=== PATIENT | female | born 1970 | race Caucasian/White ===

== ENCOUNTER 2021-09-21 12:21 | Emergency (ER) | payer OTHER ==
[2021-09-21 12:29] VITALS: BP 131/49
[2021-09-21 13:37] LABS: APPEARANCE,URINE CLEAR (CLEAR); BILIRUBIN,URINE NEGATIVE (NEGATIVE); COLOR,URINE YELLOW (YELLOW); GLUCOSE, URINE (UA) NEGATIVE (NEGATIVE); KETONES,URINE NEGATIVE (NEGATIVE); LEUKOCYTE ESTERASE ,URINE NEGATIVE (NEGATIVE); NITRATE,URINE NEGATIVE (NEGATIVE); OCCULT BLOOD,URINE TRACE-INTACT (NEGATIVE); PROTEIN,URINE NEGATIVE (NEGATIVE); UROBILINOGEN,URINE 0.2 mg/dL (0.2-1.0)
[2021-09-21 13:39] LABS: HCG,QUAL RESULT NEGATIVE (NEGATIVE)
[2021-09-21 13:50] LABS: BACTERIA,URINE Rare /HPF (None Seen); RBC,URINE 0-1 /HPF (0-1); SQUAMOUS EPITHELIAL CELL,UR Rare /HPF (0-2); WBC,URINE 0-1 /HPF (0-1)
[2021-09-21] MEDS ORDERED: LORAZEPAM 2 MG/ML 1 ML VIAL IVP ONE (14:00)
[2021-09-21] MEDS ORDERED: LORAZEPAM 2 MG/ML 1 ML VIAL ONE (14:10)
[2021-09-21] MEDS ORDERED: LORA-192 PO (15:45)
== END 2021-09-21 15:57 | disposition home or self-care (01) ==
LOC: EDH 12:21
DX: M54.6 Pain in thoracic spine (principal); M54.2 Cervicalgia; M54.50 Low back pain, unspecified; F32.A Depression, unspecified; Z90.49 Acquired absence of other specified parts of digestive tract
CPT/HCPCS: 72125; 72128; 72131; 81001; 81025; 96374; 99284; J2060

== ENCOUNTER 2022-09-13 13:37 | Emergency (ER) | payer OTHER ==
[~2022-09-13] VITALS: Ht 160 cm; Wt 73.9 kg
[~2022-09-13 13:37] MED LIST: LORA-192 PO
[2022-09-13 14:20] LABS: BASOPHILS % (AUTO) 0.7 % (0.0-5.0); EOSINOPHILS % (AUTO) 1.3 % (0.0-8.0); HEMATOCRIT 44.8 % (36-48); LYMPHOCYTES % (AUTO) 18.4 % (21.0-51.0); MEAN CORPUSCULAR HEMOGLOBIN 31.4 pg (27.0-33.0); MEAN CORPUSCULAR HGB CONC 34.6 g/dL (32.0-36.0); MEAN CORPUSCULAR VOLUME 90.7 fL (79-99); MONOCYTES % (AUTO) 6.3 % (3.0-13.0); NEUTROPHILS % (AUTO) 73.1 % (40.0-77.0); PLATELET COUNT (AUTO) 211 K/uL (130-400); RED BLOOD CELL COUNT(AUTO) 4.94 MIL/uL (4.00-5.50); RED CELL DISTRIBUTION WIDTH 12.5 % (11.0-15.5)
[2022-09-13 14:56] LABS: CREATININE 0.8 mg/dL (0.5-1.5); POTASSIUM 3.7 mmol/L (3.5-5.1)
[2022-09-13 15:01] LABS: ALBUMIN 3.4 g/dL (3.5-5.0); TOTAL PROTEIN, SERUM 6.6 g/dL (6.0-8.3)
[2022-09-13] MEDS ORDERED: DEXAMETHASONE SOD PHOSPHATE 4 MG/ML 1ML VIAL IVP ONE (16:00)
[2022-09-13] MEDS ORDERED: KETOROLAC 15MG/ML VIAL (15MG/ML) IV ONE (16:00)
[2022-09-13 16:29] VITALS: BP 101/55
[2022-09-13] MEDS ORDERED: METH4TAB3 PO (17:22)
== END 2022-09-13 17:37 | disposition home or self-care (01) ==
LOC: EDH 13:37
DX: R09.1 Pleurisy (principal); F32.A Depression, unspecified; F17.200 Nicotine dependence, unspecified, uncomplicated; Z90.49 Acquired absence of other specified parts of digestive tract; Z90.710 Acquired absence of both cervix and uterus
CPT/HCPCS: 99285; 96374; 71045; 96375; 84484; 80053; 85025; 36415; 93005; J1100; J1885

== ENCOUNTER 2023-01-10 10:38 | Emergency (ER) | payer OTHER ==
[~2023-01-10] VITALS: Ht 157.5 cm; Wt 74.8 kg
[~2023-01-10 10:38] MED LIST changes: +METH4TAB3 PO
[2023-01-10 11:19] LABS: BASOPHILS # (AUTO) 0.03 K/uL (0.00-0.20); BASOPHILS % (AUTO) 0.4 % (0.0-5.0); EOSINOPHILS # (AUTO) 0.14 K/uL (0.00-0.70); HEMATOCRIT 45.2 % (36-48); IMMATURE GRANULOCYTE ABSOLUTE 0.01 K/uL (0-1); LYMPHOCYTES # (AUTO) 1.5 K/uL (1.0-4.8); LYMPHOCYTES % (AUTO) 21.8 % (21.0-51.0); MEAN CORPUSCULAR HEMOGLOBIN 31.6 pg (27.0-33.0); MEAN CORPUSCULAR HGB CONC 35.4 g/dL (32.0-36.0); MEAN CORPUSCULAR VOLUME 89.2 fL (79-99); MONOCYTES # (AUTO) 0.5 K/uL (0.1-1.0); MONOCYTES % (AUTO) 6.8 % (3.0-13.0); NEUTROPHILS # (AUTO) 4.8 K/uL (1.8-7.7); NEUTROPHILS % (AUTO) 68.9 % (40.0-77.0); PLATELET COUNT (AUTO) 246 K/uL (130-400); RED BLOOD CELL COUNT(AUTO) 5.07 MIL/uL (4.00-5.50); RED CELL DISTRIBUTION WIDTH 12.6 % (11.0-15.5)
[2023-01-10 11:27] LABS: ALBUMIN 3.8 g/dL (3.5-5.0); BILIRUBIN,TOTAL 0.5 mg/dL (0.2-1.0); CREATININE 0.7 mg/dL (0.5-1.5); POTASSIUM 4.5 mmol/L (3.5-5.1); TOTAL PROTEIN, SERUM 7.5 g/dL (6.0-8.3)
[2023-01-10] MEDS ORDERED: SUCRALFATE 1 GM TABLET PO SCH (13:00)
[2023-01-10] MEDS ORDERED: PANTOPRAZOLE 40 MG/VIAL IVP ONE (13:00)
[2023-01-10] MEDS ORDERED: PANTOPRAZOLE 40 MG/VIAL ONE (13:06)
[2023-01-10] MEDS ORDERED: SUCRALFATE 1 GM TABLET ONE (13:07)
[2023-01-10] MEDS ORDERED: SUCR1TAB28 PO (16:41)
[2023-01-10] MEDS ORDERED: PANT40TA55 PO (16:41)
[2023-01-10 16:42] VITALS: BP 128/65; PULSE 67; RESP 16; O2SAT 98
== END 2023-01-10 16:50 | disposition home or self-care (01) ==
LOC: EDH 10:38
DX: K21.9 Gastro-esophageal reflux disease without esophagitis (principal); K22.4 Dyskinesia of esophagus; F17.200 Nicotine dependence, unspecified, uncomplicated; Z79.52 Long term (current) use of systemic steroids; Z79.899 Other long term (current) drug therapy; Z90.49 Acquired absence of other specified parts of digestive tract
CPT/HCPCS: 99285; 96374; 71045; 84484 ×2; 80053; 83690; 85025; 36415; 93005; C9113

== ENCOUNTER 2024-02-27 12:40 | Emergency (ER) | payer BC ==
[~2024-02-27] VITALS: Ht 157.5 cm; Wt 68.5 kg
[~2024-02-27 12:40] MED LIST changes: +FAMO-136 PO; +ONDA-243 PO; +PANT40TA55 PO; +SUCR1TAB28 PO; +SULF1TAB42 PO
[2024-02-27 13:50] LABS: BASOPHILS # (AUTO) 0.03 K/uL (0.00-0.20); BASOPHILS % (AUTO) 0.4 % (0.0-5.0); EOSINOPHILS # (AUTO) 0.11 K/uL (0.00-0.70); EOSINOPHILS % (AUTO) 1.3 % (0.0-8.0); HEMATOCRIT 44.1 % (36-48); IMMATURE GRANULOCYTE ABSOLUTE 0.02 K/uL (0-1); LYMPHOCYTES # (AUTO) 1.8 K/uL (1.0-4.8); LYMPHOCYTES % (AUTO) 22.1 % (21.0-51.0); MEAN CORPUSCULAR HEMOGLOBIN 31.1 pg (27.0-33.0); MEAN CORPUSCULAR HGB CONC 34.7 g/dL (32.0-36.0); MEAN CORPUSCULAR VOLUME 89.6 fL (79-99); MONOCYTES # (AUTO) 0.5 K/uL (0.1-1.0); MONOCYTES % (AUTO) 5.8 % (3.0-13.0); NEUTROPHILS # (AUTO) 5.7 K/uL (1.8-7.7); NEUTROPHILS % (AUTO) 70.2 % (40.0-77.0); PLATELET COUNT (AUTO) 231 K/uL (130-400); RED BLOOD CELL COUNT(AUTO) 4.92 MIL/uL (4.00-5.50); RED CELL DISTRIBUTION WIDTH 12.5 % (11.0-15.5); WHITE BLOOD COUNT (AUTO) 8.2 K/uL (4.8-10.8)
[2024-02-27 13:58] LABS: CREATININE 0.7 mg/dL (0.5-1.0)
[2024-02-27 14:21] LABS: APPEARANCE,URINE CLOUDY (CLEAR); BILIRUBIN,URINE NEGATIVE (NEGATIVE); COLOR,URINE LIGHT-YELLOW (YELLOW); GLUCOSE, URINE (UA) NEGATIVE (NEGATIVE); KETONES,URINE NEGATIVE (NEGATIVE); LEUKOCYTE ESTERASE ,URINE 500 Leu/uL (NEGATIVE); NITRATE,URINE NEGATIVE (NEGATIVE); OCCULT BLOOD,URINE MODERATE (NEGATIVE); PH,URINE 5.5 (5.0-8.0); PROTEIN,URINE NEGATIVE (NEGATIVE); UROBILINOGEN,URINE 0.2 mg/dL (0.2-1.0)
[2024-02-27 14:25] LABS: ADD UA MICROSCOPIC YES
[2024-02-27 14:28] LABS: BACTERIA,URINE RARE /HPF (None Seen); MUCUS,URINE RARE LPF (None Seen); SQUAMOUS EPITHELIAL CELL,UR FEW /HPF (0-2); WBC,URINE 26-50 /HPF (0-1)
[2024-02-27] MEDS ORDERED: CEPH500B PO (14:39)
[2024-02-27] MEDS: LACTATED RINGERS 1000ML 1,000 ML IV ONE (15:18)
[2024-02-27] MEDS: ketOROlac 30MG VIAL (30MG/ML) IM ONE (15:19)
[2024-02-27 15:46] VITALS: BP 149/84; PULSE 76; RESP 18; TEMP 98.4; O2SAT 100
== END 2024-02-27 16:19 | disposition home or self-care (01) ==
LOC: EDH 12:40
DX: N39.0 Urinary tract infection, site not specified (principal); F17.200 Nicotine dependence, unspecified, uncomplicated; Z79.899 Other long term (current) drug therapy; Z90.49 Acquired absence of other specified parts of digestive tract; Z90.710 Acquired absence of both cervix and uterus
CPT/HCPCS: 99284; 80048; 85025; 87086; 81001; 36415; 96372; J7120; J1885

== ENCOUNTER 2024-11-01 03:20 | Emergency (ER) | payer BC ==
[~2024-11-01] VITALS: Ht 157.5 cm; Wt 72.1 kg
[~2024-11-01 03:20] MED LIST changes: +CEPH500B PO
[2024-11-01 04:08] LABS: BASOPHILS # (AUTO) 0.03 K/uL (0.00-0.20); BASOPHILS % (AUTO) 0.3 % (0.0-5.0); EOSINOPHILS # (AUTO) 0.08 K/uL (0.00-0.70); EOSINOPHILS % (AUTO) 0.7 % (0.0-8.0); HEMATOCRIT 39.8 % (36-48); IMMATURE GRANULOCYTE ABSOLUTE 0.03 K/uL (0-1); LYMPHOCYTES # (AUTO) 1.8 K/uL (1.0-4.8); LYMPHOCYTES % (AUTO) 16.1 % (21.0-51.0); MEAN CORPUSCULAR HEMOGLOBIN 32.6 pg (27.0-33.0); MEAN CORPUSCULAR HGB CONC 36.2 g/dL (32.0-36.0); MONOCYTES # (AUTO) 0.9 K/uL (0.1-1.0); NEUTROPHILS # (AUTO) 8.3 K/uL (1.8-7.7); NEUTROPHILS % (AUTO) 74.6 % (40.0-77.0); PLATELET COUNT (AUTO) 239 K/uL (130-400); RED BLOOD CELL COUNT(AUTO) 4.42 MIL/uL (4.00-5.50); RED CELL DISTRIBUTION WIDTH 12.5 % (11.0-15.5); WHITE BLOOD COUNT (AUTO) 11.2 K/uL (4.8-10.8)
[2024-11-01 04:16] LABS: CREATININE 0.5 mg/dL (0.5-1.0)
[2024-11-01] MEDS: 0.9%NACL 1000ML 1,000 ML IV ONE (04:21)
[2024-11-01] MEDS: Solu-medROL 125MG VIAL IVP ONE (04:21)
[2024-11-01] MEDS: FAMOTIDINE 20MG VIAL IV ONE (04:22)
[2024-11-01] MEDS: acetaMINOPHEN 500 MG TABLET PO ONE (04:22)
[2024-11-01] MEDS: ketOROlac 15MG/ML VIAL (15MG/ML) IV ONE (04:22)
[2024-11-01 04:45] LABS: APPEARANCE,URINE CLEAR (CLEAR); BILIRUBIN,URINE NEGATIVE (NEGATIVE); COLOR,URINE YELLOW (YELLOW); GLUCOSE, URINE (UA) NEGATIVE (NEGATIVE); KETONES,URINE NEGATIVE (NEGATIVE); LEUKOCYTE ESTERASE ,URINE NEGATIVE Leu/uL (NEGATIVE); NITRATE,URINE NEGATIVE (NEGATIVE); OCCULT BLOOD,URINE LARGE (NEGATIVE); PH,URINE 5.5 (5.0-8.0); PROTEIN,URINE 20 mg/dL (NEGATIVE); UROBILINOGEN,URINE 3 mg/dL (0.2-1.0)
[2024-11-01 04:49] LABS: ADD UA MICROSCOPIC YES
[2024-11-01 04:51] LABS: BACTERIA,URINE RARE /HPF (None Seen); MUCUS,URINE RARE LPF (None Seen); SQUAMOUS EPITHELIAL CELL,UR MOD /HPF (0-2)
--- NOTE | 2024-11-01 05:02 | ERN ---
ED Note History of Present Illness Stated Complaint: FEVER, DIARRHEA, HIVES Chief Complaint: Multiple Complaints Time Seen by MD: 03:24 Dictation: This is a 54-year-old female who presented to the emergency room with complaints of diarrhea for the past 2 days and hives and erythema of the face for the past 2 days. She had a low-grade fever that started on and diarrhea started on Sunday with skin changes around the same time. She took Benadryl at 1:30 a.m. and came into the ER for evaluation Temperature a 100.1 pulse 80 respirations 16 blood pressure 120/68 with a pulse oximetry of 97% on room air Chronic medical problems include GERD hypertension depression history of back surgery and substance abuse including cocaine Allergies: Coded Allergies: No Known Allergies (Unverified Allergy, Unknown, 09/13/22) Home Meds Active Scripts Cephalexin Monohydrate (Keflex) 500 Mg Cap, 1 CAP PO TID for 10 Days, #30 CAP 0 Refills Prov:LUC COLÓN MD 02/27/24 Sulfamethoxazole/Trimethoprim (Bactrim Ds Tablet) 800 Mg-160 Mg Tablet, 1 TAB PO BID for 7 Days, #14 TAB 0 Refills Prov:JACKELIN BYRD 12/02/23 Famotidine (Pepcid) 20 Mg Tablet, 20 MG PO DAILY for 30 Days, #30 TAB Prov:JACKELIN BYRD 12/02/23 Ondansetron (Ondansetron Odt) 4 Mg Tab.rapdis, 4 MG PO BID for 10 Days, #20 TAB Prov:JACKELIN BYRD 12/02/23 Sucralfate (Carafate) 1 Gm Tablet, 1 GM PO QID, #60 TAB 0 Refills Prov:YOVANY ELMORE MD 01/10/23 Pantoprazole Sodium (Protonix) 40 Mg Ectab, 40 MG PO DAILY, #30 TAB.EC 0 Refills Prov:YOVANY ELMORE MD 01/10/23 Methylprednisolone (Medrol) 4 Mg Tab.ds.pk, 4 MG PO AD for 6 Days, #1 KIT Prov:SAL WANG MD 09/13/22 Lorazepam (Ativan) 1 Mg Tablet, 1 MG PO BID PRN for MUSCLE SPASMS, #7 TAB Prov:EHSAN BENAVIDES 09/21/21 Past Medical History Past Medical History: Depression, GERD, Hypertension Surgical History: Appendectomy, Hysterectomy, Cholecystectomy, Other, Surgical History Other: LIPOMA CYST REMOVAL , HERNIATED DISC REPAIR Social History: Smokers, Drugs, ETOH, Lives with family RN Note Reviewed/Agreed w/PFSH: Yes Review of System Dictation Constitutional: Positive for low-grade fever, denies chills, and weight loss Eyes: Negative for injury, pain,redness, and discharge ENT: Negative for injury,pain or swelling Cardiovascular: Negative for chest pain, palpitations, and edema Respiratory: Negative for shortness of breath, cough, and wheezing, Abdomen/GI: Negative for abdominal pain, nausea, vomiting, positive for diarrhea, Back: Negative for injury and pain : Negative for injury, bleeding and discharge MS/Extremity: Negative for injury and deformity Skin: Negative for rash, and discoloration Neuro: Negative for headache, weakness, numbness, tingling, and seizure Psych: Negative for suicide ideation, homicidal ideation, and hallucinations Initial Vital Sign VS Vital Signs Date Time Temp Pulse Resp B/P (MAP) Pulse Ox O2 Delivery O2 Flow Rate FiO2 11/01/24 03:21 100.0 80 16 120/68 97 Room Air 0 11/01/24 03:33 21 Physical Exam Dictation General: awake, alert, NAD Head/Face: Normocephalic, atraumatic facial flushing erythema and tender lymph nodes in the jugulodigastric area Eyes: PERRL, EOMI, vision at baseline ENT: oral cavity clear, TMs clear, no signs of infection poor dental Neck: Trachea midline, supple, no nuchal rigidity Cardiovascular: RRR, normal S1/S2, No MRGs, no JVD Respiratory: CTAB, no respiratory distress, No rales or wheezes Abdomen: Soft, non-tender, non-distended, normal bowel sounds, no guarding or rebound. Skin: Warm, dry, normal turgor, no rash MS/Extremity: Pulses equal, no cyanosis, neurovascular intact, FROM Neuro: COAx4, GCS 15, strength 5/5, CN 2-12 intact, normal cerebellar exam, normal gait, Psych: Normal behavior, mood, and affect normal Extremities-trace edema without any palpable cords, Homans sign is negative Results (Laboratory/Radiology) Laboratory/Radiology Laboratory Tests Test 11/01/24 03:55 11/01/24 04:29 White Blood Count 11.2 K/uL (4.8-10.8) H Red Blood Count 4.42 MIL/uL (4.00-5.50) Hemoglobin 14.4 g/dL (12.0-16.0) Hematocrit 39.8 % (36-48) Mean Corpuscular Volume 90.0 fL (79-99) Mean Corpuscular Hemoglobin 32.6 pg (27.0-33.0) Mean Corpuscular Hemoglobin Concent 36.2 g/dL (32.0-36.0) H Red Cell Distribution Width 12.5 % (11.0-15.5) Platelet Count 239 K/uL (130-400) Mean Platelet Volume 11.2 fL (7.5-10.5) H Immature Granulocyte % (Auto) 0.3 % (0-1) Neutrophils (%) (Auto) 74.6 % (40.0-77.0) Lymphocytes (%) (Auto) 16.1 % (21.0-51.0) L Monocytes (%) (Auto) 8.0 % (3.0-13.0) Eosinophils (%) (Auto) 0.7 % (0.0-8.0) Basophils (%) (Auto) 0.3 % (0.0-5.0) Neutrophils # (Auto) 8.3 K/uL (1.8-7.7) H Lymphocytes # (Auto) 1.8 K/uL (1.0-4.8) Monocytes # (Auto) 0.9 K/uL (0.1-1.0) Eosinophils # (Auto) 0.08 K/uL (0.00-0.70) Basophils # (Auto) 0.03 K/uL (0.00-0.20) Absolute Immature Granulocyte (auto 0.03 K/uL (0-1) Nucleated Red Blood Cells 0.0 % (0.0-0.19) Red Blood Cell Morphology See comments Sodium Level 138 mmol/L (136-145) Potassium Level 4.0 mmol/L (3.5-5.1) Chloride Level 101 mmol/L (101-111) Carbon Dioxide Level 30 mmol/L (21-32) Blood Urea Nitrogen 16 mg/dL (7-18) Creatinine 0.5 mg/dL (0.5-1.0) Glomerular Filtration Rate Calc 112 mL/min (>90) Random Glucose 115 mg/dL (70-105) H Total Calcium 8.6 mg/dL (8.5-10.1) Urine Color YELLOW (YELLOW) Urine Appearance CLEAR (CLEAR) Urine pH 5.5 (5.0-8.0) Urine Specific Ajo 1.046 (1.001-1.031) Urine Protein 20 mg/dL (NEGATIVE) H Urine Glucose (UA) NEGATIVE mg/dL (NEGATIVE) Urine Ketones NEGATIVE mg/dL (NEGATIVE) Urine Occult Blood LARGE (NEGATIVE) H Urine Nitrate NEGATIVE (NEGATIVE) Urine Bilirubin NEGATIVE mg/dL (NEGATIVE) Urine Urobilinogen 3 mg/dL (0.2-1.0) H Urine Leukocyte Esterase NEGATIVE Cameron/uL Urine RBC 11-25 /HPF (0-1) H Urine WBC 2-5 /HPF (0-1) H Urine Squamous Epithelial Cells MOD /HPF (0-2) Urine Bacteria RARE /HPF (None Seen) Urine Opiates Screen POSITIVE (NEGATIVE) H Urine Barbiturates Screen NEGATIVE (NEGATIVE) Urine Phencyclidine Screen NEGATIVE (NEGATIVE) Urine Amphetamines Screen NEGATIVE (NEGATIVE) Urine Benzodiazepines Screen NEGATIVE (NEGATIVE) Urine Cocaine Screen POSITIVE (NEGATIVE) H Urine Marijuana (THC) Screen NEGATIVE (NEGATIVE) Labs Reviewed?: Yes ED Course ED Course Orders Procedure Category Date Status Time Cbc With Differential LAB 11/01/24 Complete 03:40 Basic Metabolic Panel LAB 11/01/24 Complete 03:40 Urinalysis Profile LAB 11/01/24 Complete 03:40 0.9%Nacl 1000ml (Ns PHA 11/01/24 Complete 1000ml) 04:00 Acetaminophen 500mg PHA 11/01/24 Complete Tab (Tylenol 500mg T 04:00 Methylprednisolone PHA 11/01/24 Complete Succ 125mg (Solu-Medr 04:00 Famotidine 20mg Vial PHA 11/01/24 Complete (Pepcid 20mg Vial) 04:00 Ketorolac PHA 11/01/24 Complete Tromethamine 15mg/Ml 04:30 Drug Screen Urine LAB 11/01/24 Complete 05:38 Current Medications Medications (Trade) Dose Ordered Sig/Lázaro Route PRN Reason Start Time Stop Time Status Last Admin Dose Admin Acetaminophen (TYLenol 500MG TAB) 1,000 mg ONCE ONCE PO 11/01/24 04:00 11/01/24 04:01 DC 11/01/24 04:22 Famotidine (Pepcid 20mg Vial) 20 mg ONCE ONCE IV 11/01/24 04:00 11/01/24 04:01 DC 11/01/24 04:22 Ketorolac Tromethamine (toRADol) 15 mg ONCE ONCE IV 11/01/24 04:30 11/01/24 04:31 DC 11/01/24 04:22 Methylprednisolone Sodium Succinate (Solu-medROL 125MG) 60 mg ONCE ONCE IVP 11/01/24 04:00 11/01/24 04:01 DC 11/01/24 04:21 Sodium Chloride 1,000 ml @ 0 mls/hr ONCE ONCE IV 11/01/24 04:00 11/01/24 04:01 DC 11/01/24 04:21 Vital Signs Date Time Temp Pulse Resp B/P (MAP) Pulse Ox O2 Delivery O2 Flow Rate FiO2 11/01/24 04:22 100.0 11/01/24 03:33 100.0 82 19 115/61 97 Room Air* 0 21 11/01/24 03:21 100.0 80 16 120/68 97 Room Air 0 We will perform diagnostic labs, and administer medications according to the patient's complaint. Once the results are available, will review and personally interpreted the labs to rule out any acute life-threatening emergency the trach require immediate intervention and treatment. I will then re-evaluate the patient after treatment and diagnostic exams have return to determine whether the patient requires any further testing, can safely be discharged home or need further admission to hospital for additional treatment and evaluation 5:00 a.m. labs reviewed CBC showed a white count of 11.2. BNP 7 is with a nor mal limits except for a mild hyperglycemia. Urinalysis shows large amount of occult blood and RBCs no leuko esterase or WBCs.. I have updated the patient on all the labs and at this point only able to do Benadryl and hydrocortisone and that she should follow up with her primary and get a referral to see dermatology. Medical Decision Making MDM MDM: Differential diagnosis: Allergic reaction secondary to lotion or environmental allergens., skin manifestations of substance abuse, infectious etiology Rationale: Tests considered and ordered secondary to shared decision making include: Previous outside records reviewed: Old ER visits. Risk of complication and/or morbidity or mortality of patient management: None Medications-Per medication reconciliation Need for hospitalization: Patient does not meet criteria for hospitalization. Need for emergency major/minor surgery: No There are no social concerns with this patient. Prescription drug management Prescriptions will include symptomatic care Patient's prior external medical records from other ER visits were reviewed by me as indicated. Prior testing and results from previous visits were reviewed. Prior tests were taken into account with medical decision making and resource utilization, independent historian/historians were used to obtain complete medical history. I independently interpreted the test that were performed, results were reviewed by me and considered findings on radiology if ordered. Medical management and examination interpretation discussions were had by me with other qualified healthcare professionals as indicated for the patient's care. Problem List Problem List: (1) Erythema of face (2) Allergic reaction (3) Diarrhea (4) GERD (gastroesophageal reflux disease) (5) Continuous tobacco abuse DX & DISP Disposition: Discharge Departure Impression: Primary Impression: Allergic reaction Additional Impressions: Erythema of face, Diarrhea Condition: Stable Additional Instructions: Patient and the caregiver have been informed of all the diagnostic tests and the imaging conducted during the today's visit to the emergency room and has verbalized understanding of the results I have personally reviewed and interpreted all diagnostic exams performed here in the ER today as well as the vital signs documented by the nursing staff. The patient is now being discharged to home and should follow up with the primary care physician or the specialist as directed by the ER staff. Follow-up with primary care provider in 1 to 2 days. Take medications as directed here in the emergency room. Okay to continue home medications unless otherwise discussed during your visit in the emergency room today. Return to your nearest emergency room if symptoms worsen or if there is no improvement. Call 911 if you need immediate assistance. Take Tylenol or Motrin [id number] as needed and if no contraindications are present. Increase oral hydration. A wound culture or urine culture was ordered here in the emergency room department please follow-up with primary care provider and advise them to get repeat ports from our facility. If you had any Jere wrap/splints that were applied here, please do not remove them until you see your primary care or specialty. Referrals: JOHNSON MILLER MD (PCP) FORTINO HERNANDEZ MD Nov 01, 2024 05:02
[2024-11-01 05:11] VITALS: TEMP 99.4
[2024-11-01 05:58] LABS: AMPHET/METH SCREEN,URINE NEGATIVE (NEGATIVE); BARBITURATE SCREEN, URINE NEGATIVE (NEGATIVE); BENZODIAZEPINES SCREEN,URINE NEGATIVE (NEGATIVE); CANNABINOID SCREEN,URINE NEGATIVE (NEGATIVE); COCAINE SCREEN,URINE POSITIVE (NEGATIVE); OPIATE SCREEN,URINE POSITIVE (NEGATIVE); PHENCYCLIDINE SCREEN,URINE NEGATIVE (NEGATIVE)
[2024-11-01 06:53] VITALS: BP 109/55; PULSE 68; RESP 19; TEMP 98.9; O2SAT 97
[2024-11-02] MEDS ORDERED: DIPH50 PO (13:42)
[2024-11-02] MEDS ORDERED: PRED20TA3 PO (13:42)
== END 2024-11-01 06:56 | disposition home or self-care (01) ==
LOC: EDH 03:20
DX: T78.40XA Allergy, unspecified, initial encounter (principal); L53.9 Erythematous condition, unspecified; R19.7 Diarrhea, unspecified; F17.200 Nicotine dependence, unspecified, uncomplicated; I10 Essential (primary) hypertension; Z79.899 Other long term (current) drug therapy; Z90.49 Acquired absence of other specified parts of digestive tract; Z90.710 Acquired absence of both cervix and uterus; Z98.890 Other specified postprocedural states
CPT/HCPCS: 99284; 96374; 96375; 96361; 80048; 80305; 85025; 81001; 36415; J1885; J2919; J3490; J7030

== ENCOUNTER 2024-11-02 13:01 | Emergency (ER) | payer BC ==
[~2024-11-02] VITALS: Ht 157.5 cm; Wt 72.1 kg
--- NOTE | 2024-11-02 13:09 | ERN ---
ED Note History of Present Illness Stated Complaint: ALLERGIC REACTION Chief Complaint: Allergic Reaction Time Seen by MD: 13:04 Dictation: PATIENT IS A 54-YEAR-OLD FEMALE COMING IN WITH A POSSIBLE ACUTE ALLERGIC REACTION THAT IS STARTED ON SUNDAY. 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 SHE STATES SHE HAS BEEN TAKEN BENADRYL [id number] LAST DOSE WAS AT 03:00 THIS MORNING SHE STATES HER THROAT FEELS TIGHT. VOICE IS CLEAR IN TRIAGE BILATERAL BREATH SOUNDS ARE CLEAR IN TRIAGE FACIAL MILDLY SWOLLEN AND SKIN IS FLUSHED. Allergies: Coded Allergies: No Known Allergies (Unverified Allergy, Unknown, 09/13/22) Home Meds Active Scripts Cephalexin Monohydrate (Keflex) 500 Mg Cap, 1 CAP PO TID for 10 Days, #30 CAP 0 Refills Prov:LUC COLÓN MD 02/27/24 Sulfamethoxazole/Trimethoprim (Bactrim Ds Tablet) 800 Mg-160 Mg Tablet, 1 TAB PO BID for 7 Days, #14 TAB 0 Refills Prov:JACKELIN BYRD 12/02/23 Famotidine (Pepcid) 20 Mg Tablet, 20 MG PO DAILY for 30 Days, #30 TAB Prov:JACKELIN BYRD 12/02/23 Ondansetron (Ondansetron Odt) 4 Mg Tab.rapdis, 4 MG PO BID for 10 Days, #20 TAB Prov:JACKELIN BYRD 12/02/23 Sucralfate (Carafate) 1 Gm Tablet, 1 GM PO QID, #60 TAB 0 Refills Prov:YOVANY ELMORE MD 01/10/23 Pantoprazole Sodium (Protonix) 40 Mg Ectab, 40 MG PO DAILY, #30 TAB.EC 0 Refills Prov:YOVANY ELMORE MD 01/10/23 Methylprednisolone (Medrol) 4 Mg Tab.ds.pk, 4 MG PO AD for 6 Days, #1 KIT Prov:SAL WANG MD 09/13/22 Lorazepam (Ativan) 1 Mg Tablet, 1 MG PO BID PRN for MUSCLE SPASMS, #7 TAB Prov:EHSAN BENAVIDES 5/4/22 Past Medical History Past Medical History: Depression, GERD, Hypertension Surgical History: Appendectomy, Hysterectomy, Cholecystectomy, Other, Surgical History Other: LIPOMA CYST REMOVAL , HERNIATED DISC REPAIR Social History: Smokers, Drugs, ETOH, Lives with family History: Not Applicable RN Note Reviewed/Agreed w/PFSH: Yes Review of System Dictation CONSTITUTIONAL: NEGATIVE EXCEPT FOR HPI HEAD/FACE: NEGATIVE EXCEPT FOR HPI EENT: NEGATIVE EXCEPT FOR HPI TONGUE SWELLING RESPIRATORY: NEGATIVE EXCEPT FOR HPI GASTROINTESTINAL/ABDOMINAL: NEGATIVE EXCEPT FOR HPI GENITOURINARY: NEGATIVE EXCEPT FOR HPI MUSCULOSKELETAL: NEGATIVE EXCEPT FOR HPI INTEGUMENTARY: NEGATIVE EXCEPT FOR HPI SKIN FLUSHED NEUROLOGICAL/PSYCH: NEGATIVE EXCEPT FOR HPI HEMATOLOGIC/LYMPHATIC: NEGATIVE EXCEPT FOR HPI ALL SYSTEMS NEGATIVE, EXCEPT NOTED ABOVE. 13 POINT REVIEW OF SYSTEMS ASSESSED AND ALL NEGATIVE EXCEPT FOR ABOVE. Initial Vital Sign VS Vital Signs Date Time Temp Pulse Resp B/P (MAP) Pulse Ox O2 Delivery O2 Flow Rate FiO2 11/02/24 13:03 99.0 78 18 128/85 97 Room Air 0 11/02/24 13:15 21 Physical Exam Dictation VITAL SIGNS REVIEWED GENERAL APPEARANCE: ALERT, ORIENTED X 3, NO ACUTE DISTRESS, WELL DEVELOPED, NOURISHED. HEAD AND FACE: NON-TRAUMATIC. EYES: PERRL, PINK CONJUNCTIVAS, EYELID NO TRAUMA, ANTERIOR CHAMBER WITH ARCUS SENILIS. EARS: PINNAS INTACT AND NO SIGNS OF TRAUMA OR ERYTHEMA EAR CANALS CLEAR AND NO DISCHARGE TM NO ERYTHEMA NOSE: NO DISCHARGE, NO BLEEDING. OROPHARYNX: MOUTH NORMAL, TONGUE PINK, VOICE IS CLEAR PHARYNX CLEAR,NO ERYTHEMA, TONSILS NO EXUDATES, NO ABSCESSES NOTED, MUCOUS MEMBRANE MOIST NECK: SUPPLE, NON-TENDER, NO THYROMEGALY, NO MASSES, NO JVD, NO BRUITS BREAST:DEFERRED CHEST:NO TENDERNESS, NO CREPITUS, NO PARADOXICAL MOVEMENT, NO RETRACTIONS LUNGS:CLEAR, WELL-VENTILATED, SYMMETRIC, NO RALES, NO WHEEZING, NO RHONCHI, NO STRIDOR, GOOD BREATH SOUNDS BILATERALLY HEART: REGULAR RATE, REGULAR RHYTHM, NO MURMUR, NO GALLOPS VASCULAR: NO PERIPHERAL EDEMA, ABDOMEN: SOFT, POSITIVE BOWEL SOUNDS, NONDISTENDED, NO GUARDING, NONTENDER, NO REBOUND, NO MASSES NO HEPATOMEGALY, NO SPLENOMEGALY, NO LIM'S SIGN, NO HERNIAS. RECTAL: DEFERRED GENITAL: DEFERRED NEUROLOGICAL: NORMAL SPEECH, MOTOR FUNCTION INTACT, SENSORY FUNCTION INTACT MUSCULOSKELETAL: NECK NONTENDER, FULL RANGE OF MOTION, BACK NONTENDER, FULL RANGE OF MOTION, EXTREMITIES: NONTENDER, FULL RANGE OF MOTION SKIN: COLOR PINK, SKIN IS FLUSH TO FACE LYMPHATIC: DEFERRED Results (Laboratory/Radiology) Labs Reviewed?: Yes ED Course ED Course Orders Procedure Category Date Status Time Dexamethasone 4mg/Ml PHA 11/02/24 Complete 1ml Vial (Dexametha 13:06 Diphenhydramine Hcl PHA 11/02/24 Complete (Benadryl Inj) 13:06 Famotidine 20mg Tab PHA 11/02/24 Complete (Pepcid 20mg Tab) 13:30 Current Medications Medications (Trade) Dose Ordered Sig/Lázaro Route PRN Reason Start Time Stop Time Status Last Admin Dose Admin Dexamethasone Sodium Phosphate (dexaMETHasone 4MG/ML 1ML VIAL) 8 mg ONCE STAT IM 11/02/24 13:06 11/02/24 13:09 DC 11/02/24 13:23 Diphenhydramine HCl (BENAdryl INJ) 50 mg ONCE STAT IV 11/02/24 13:06 11/02/24 13:09 DC 11/02/24 13:23 Famotidine (Pepcid 20mg Tab) 40 mg ONCE ONCE PO 11/02/24 13:30 11/02/24 13:31 DC 11/02/24 13:24 Vital Signs Date Time Temp Pulse Resp B/P (MAP) Pulse Ox O2 Delivery O2 Flow Rate FiO2 11/02/24 13:15 98.2 74 16 140/74 98 Room Air* 0 21 11/02/24 13:03 99.0 78 18 128/85 97 Room Air 0 1340/PATIENT STATES SHE FEELS BETTER AFTER TREATMENT. WE WILL BE DISCHARGED HOME TO FOLLOW UP WITH HER PRIMARY CARE DOCTOR TOMORROW SATS 98-100% ON ROOM AIR VOICE IS CLEAR BILATERAL BREATH SOUNDS CLEAR Medical Decision Making MDM MEDICAL DECISION-MAKING BASED ON EMPIRIC TREATMENT FOR POSSIBLE ALLERGIC REACTION WITH STEROIDS/BENADRYL/PEPCID. MARKEDLY IMPROVED AFTER TREATMENT. DISCHARGED HOME WITH BENADRYL AND PREDNISONE TOLD TO SEE HER PRIMARY CARE DOCTOR ON SUNDAY WITHOUT FAIL FOR MANAGEMENT DX & DISP Disposition: Discharge Departure Impression: Primary Impression: Allergic reaction Additional Impression: Angioedema of tongue Condition: Stable Scripts Prednisone (Prednisone) 20 Mg Tablet 1 TAB PO AD for 6 Days, #14 TAB 0 Refills TAKE 1 TAB BY MOUTH THREE TIMES PER DAY X3 DAYS, THEN TAKE 1 TAB BY MOUTH TWICE A DAY X2 DAYS, THEN TAKE 1 TAB BY MOUTH ONCE A DAY X1 DAY. TAKE WITH FOOD Prov: LAURA SPENCE NP 11/02/24 Diphenhydramine HCl (Benadryl) 50 Mg Cap 50 MG PO Q6H for itching/rash, #20 CAP 0 Refills Prov: LAURA SPENCE NP 11/02/24 Additional Instructions: FOLLOW-UP WITH PRIMARY CARE PROVIDER IN 1 TO 2 DAYS. TAKE MEDICATIONS DIRECTED HERE IN THE EMERGENCY ROOM. OKAY TO CONTINUE HOME MEDICATIONS UNLESS OTHERWISE DISCUSSED DURING YOUR VISIT IN THE EMERGENCY ROOM TODAY. RETURN TO YOUR NEAREST EMERGENCY ROOM IF SYMPTOMS WORSEN OR IF THERE IS NO IMPROVEMENT. CALL 911 IF YOU NEED IMMEDIATE ASSISTANCE. TAKE TYLENOL OR MOTRIN [id number] NEEDED AND IF NO CONTRAINDICATIONS ARE PRESENT. INCREASE ORAL HYDRATION. A WOUND CULTURE OR URINE CULTURE WAS ORDERED HERE IN THE EMERGENCY ROOM DEPARTMENT PLEASE FOLLOW-UP WITH PRIMARY CARE PROVIDER AND ADVISE THEM TO GET REPEAT PORTS FROM OUR FACILITY. IF YOU HAD ANY KORTNEY WRAP/SPLINTS THAT WERE APPLIED HERE, PLEASE DO NOT REMOVE THEM UNTIL YOU SEE YOUR PRIMARY CARE OR SPECIALTY. TAKE PREDNISONE DIRECTED DAILY UNTIL GONE. TAKE WITH FOOD. TAKE BENADRYL 50 MG EVERY 6 HOURS FOR THREE MORE DOSES. SEE YOUR PRIMARY CARE DOCTOR ON SUNDAY OR SUNDAY WITHOUT FAIL FOR FOLLOW UP AND MANAGEMENT Referrals: DES FAROOQ (PCP) Time of Disposition: 13:41 I have reviewed the case, and I agree with, Diagnosis and Plan LAURA SPENCE NP Nov 02, 2024 13:09
[2024-11-02 13:15] VITALS: BP 140/74; PULSE 74; RESP 16; TEMP 98.3; O2SAT 98
[2024-11-02] MEDS: dexaMETHasone SOD PHOSPHATE 4 MG/ML 1ML VIAL IM STA (13:23)
[2024-11-02] MEDS: DiphenhydrAMINE HCL 50 MG/ML VIAL IV STA (13:23)
[2024-11-02] MEDS: FAMOTIDINE 20MG TAB PO ONE (13:24)
[2024-11-02] MEDS ORDERED: PRED20TA3 PO (13:42)
[2024-11-02] MEDS ORDERED: DIPH50 PO (13:42)
== END 2024-11-02 14:11 | disposition home or self-care (01) ==
LOC: EDH 13:01
DX: T78.3XXA Angioneurotic edema, initial encounter (principal); F17.200 Nicotine dependence, unspecified, uncomplicated; F32.A Depression, unspecified; I10 Essential (primary) hypertension; K21.9 Gastro-esophageal reflux disease without esophagitis; Z79.899 Other long term (current) drug therapy; Z90.49 Acquired absence of other specified parts of digestive tract; Z90.710 Acquired absence of both cervix and uterus; X58.XXXA Exposure to other specified factors, initial encounter
CPT/HCPCS: 99284; 96374; 96372; J1100; J1200